=== PATIENT | female | born 1970 | race Caucasian/White ===

== ENCOUNTER 2017-01-01 19:08 | Emergency (ER) | payer BC ==
[~2017-01-01] VITALS: Ht 165.1 cm; Wt 77.0 kg
[2017-01-01 19:18] VITALS: BP 168/112; PULSE 108; RESP 22; TEMP 97.9; O2SAT 99
[2017-01-01] MEDS ORDERED: LISI40TA PO (19:22)
[2017-01-01] MEDS ORDERED: SODIUM CHLOR 0.9% 1000 ML INJ 1,000 ML IV SCH (19:27)
[2017-01-01] MEDS ORDERED: EPINEPHrine HCL (1:1000) 1 MG/ML VIAL IM ONE (19:30)
[2017-01-01] MEDS ORDERED: ONDANSETRON HCL 4 MG/2 ML VIAL IVP ONE (19:30)
[2017-01-01] MEDS ORDERED: diphenhydrAMINE HCL 50 MG/ML VIAL IVP ONE (19:30)
[2017-01-01] MEDS ORDERED: SODIUM CHLORIDE 0.9% FLUSH 10 ML FLUSH IV FLUSH PRN ×2 (19:30)
[2017-01-01] MEDS ORDERED: MORPHINE SULFATE 4 MG/ML INJ IV PUSH ONE (19:30)
[2017-01-01] MEDS ORDERED: methylPREDNISolone SOD SUCC 125 MG/2 ML VIAL IV PUSH ONE (19:30)
[2017-01-01 19:34] VITALS: O2SAT 99
--- NOTE | 2017-01-01 19:35 | PD ---
HPI Chief Complaint: Allergic/Adverse Reaction Time Seen by Provider: 19:11 Travel History International Travel<30 days: No Contact w/Intl Traveler<30days: No Traveled to known affect area: No History of Present Illness HPI The patient is a 43-year-old female that was at a family outing at approximately 6 PM today when she began to get lip swelling and vomiting. She states she is allergic to avocados and usually vomits with she eats avocados. She denies any shortness of breath. She denies vomiting any blood. She denies any fever or diarrhea. She is not sure if she ate avocados or not. She denies any abdominal surgeries and still has her appendix and gallbladder. PFSH Past Medical History ?: Not LMP: Now Social History Tobacco Use: No Allergies-Medications (Allergen,Severity, Reaction): Coded Allergies: avocado (Verified Allergy, Unknown, 01/01/17) Reported Meds & Prescriptions Reported Meds & Active Scripts Active Cipro (Ciprofloxacin HCl) 500 Mg Tab 500 Mg PO BID 10 Days Flagyl (Metronidazole) 500 Mg Tab 500 Mg PO TID 10 Days Prochlorperazine Maleate 10 Mg Tab 10 Mg PO Q6H PRN Prednisone 50 Mg Tab 50 Mg PO BID Reported Lisinopril 40 Mg Tab 40 Mg PO DAILY Review of Systems Except as stated in HPI: all other systems reviewed are Neg Physical Exam Narrative GENERAL: The patient is alert, oriented 3 and moderate apparent distress with her bilateral lower quadrant pain and nausea. Her vital signs show blood pressure 168/112 and heart rate of 108 and respirations 22 but otherwise normal. SKIN: Focused skin assessment warm/dry. HEAD: Atraumatic. Normocephalic. EYES: Pupils equal and round. No scleral icterus. No injection or drainage. ENT: No nasal bleeding or discharge. Mucous membranes pink and moist. NECK: Trachea midline. No JVD. CARDIOVASCULAR: Regular rate and rhythm. No murmur appreciated. RESPIRATORY: No accessory muscle use. Clear to auscultation. Breath sounds equal bilaterally. GASTROINTESTINAL: Abdomen soft, with tenderness to direct palpation in the bilateral lower quadrants., nondistended. Hepatic and splenic margins not palpable. No guarding or rebound is present. MUSCULOSKELETAL: No obvious deformities. No clubbing. No cyanosis. No edema. NEUROLOGICAL: Awake and alert. No obvious cranial nerve deficits. Motor grossly within normal limits. Normal speech. PSYCHIATRIC: Appropriate mood and affect; insight and judgment normal. Data Data Last Documented VS Vital Signs Date Time Temp Pulse Resp B/P (MAP) Pulse Ox O2 Delivery O2 Flow Rate FiO2 01/01/17 20:35 85 16 126/81 (96) 95 Room Air 01/01/17:18 97.9 Orders Orders Beta Hcg (Quant/Titer) (01/01/17:) Complete Blood Count With Diff (01/01/17) Comprehensive Metabolic Panel (01/01/17) Lipase (01/01/17:) Urinalysis - C+S If Indicated (01/01/17) Ct Abd/Pel W Iv Contrast(Rout) (01/01/17:) Iv Access Insert/Monitor (01/01/17) Ecg Monitoring (01/01/17) Oximetry (01/01/17:) Morphine Inj (Morphine Inj) (01/01/17:30) Ondansetron Inj (Zofran Inj) (01/01/17 19:30) Sodium Chlor 0.9% 1000 Ml Inj (Ns 1000 M (01/01/17 19:27) Sodium Chloride 0.9% Flush (Ns Flush) (01/01/17:30) Diphenhydramine Inj (Benadryl Inj) (01/01/17:30) Methylprednisolone So Succ Inj (Solumedr (01/01/17 19:30) Sodium Chloride 0.9% Flush (Ns Flush) (01/01/17:30) Epinephrine (1:1000) Inj (Adrenalin (1:1 (01/01/17 19:30) Urine Culture (01/01/17:30) Iohexol 350 Inj (Omnipaque 350 Inj) (01/01/17 20:15) Metronidazole (Flagyl) (01/01/17 21:15) Ciprofloxacin (Cipro) (01/01/17 21:15) Labs Laboratory Tests Test 01/01/17:30 White Blood Count 9.3 TH/MM3 Red Blood Count 5.17 MIL/MM3 Hemoglobin 14.5 GM/DL Hematocrit 44.3 % Mean Corpuscular Volume 85.6 FL Mean Corpuscular Hemoglobin 28.1 PG Mean Corpuscular Hemoglobin Concent 32.8 % Red Cell Distribution Width 13.0 % Platelet Count 616 TH/MM3 Mean Platelet Volume 7.8 FL Neutrophils (%) (Auto) 46.2 % Lymphocytes (%) (Auto) 40.7 % Monocytes (%) (Auto) 7.0 % Eosinophils (%) (Auto) 1.4 % Basophils (%) (Auto) 4.7 % Neutrophils # (Auto) 4.4 TH/MM3 Lymphocytes # (Auto) 3.8 TH/MM3 Monocytes # (Auto) 0.6 TH/MM3 Eosinophils # (Auto) 0.1 TH/MM3 Basophils # (Auto) 0.4 TH/MM3 CBC Comment DIFF FINAL Differential Comment Urine Color YELLOW Urine Turbidity CLOUDY Urine pH 5.5 Urine Specific Jackson 1.021 Urine Protein 100 mg/dL Urine Glucose (UA) NEG mg/dL Urine Ketones 15 mg/dL Urine Occult Blood LARGE Urine Nitrite NEG Urine Bilirubin NEG Urine Leukocyte Esterase TRACE Urine RBC 4-9 /hpf Urine WBC 9-14 /hpf Urine Squamous Epithelial Cells > 8 /hpf Urine Bacteria FEW /hpf Microscopic Urinalysis Comment CULTURE INDICATED Blood Urea Nitrogen 18 MG/DL Creatinine 0.99 MG/DL Random Glucose 106 MG/DL Total Protein 9.0 GM/DL Albumin 4.3 GM/DL Calcium Level 9.1 MG/DL Alkaline Phosphatase 93 U/L Aspartate Amino Transf (AST/SGOT) 39 U/L Alanine Aminotransferase (ALT/SGPT) 51 U/L Total Bilirubin 0.4 MG/DL Sodium Level 139 MEQ/L Potassium Level 3.4 MEQ/L Chloride Level 104 MEQ/L Carbon Dioxide Level 25.2 MEQ/L Anion Gap 10 MEQ/L Estimat Glomerular Filtration Rate 61 ML/MIN Lipase 260 U/L Human Chorionic Gonadotropin, Quant LESS THAN 1 MIU/ML MDM Medical Decision Making Medical Screen Exam Complete: Yes Emergency Medical Condition: Yes Medical Record Reviewed: Yes Interpretation(s) The CBC is normal except for a platelet count of 616,000. The complete metabolic profile shows potassium of 3.4, GFR of 61, AST of 39 with total protein of 9.0 but is otherwise normal. The lipase is normal and the beta-hCG is less than 1. The urine shows cloudy turbidity, 100 protein, large occult blood with trace leukocyte esterase and 4-9 red cells and 9-14 white cells and few bacteria in the urine and culture is indicated. The CT abdomen/pelvis with IV contrast shows mild to moderate left-sided colitis, most likely an infectious or inflammatory. No abscesses, perforation or obstruction is noted. There is a benign-appearing cystic lesion of the right for low back. The patient has no history of pain in this area. Differential Diagnosis Allergic reaction, gastritis, gastroenteritis, small bowel obstruction-highly unlikely, appendicitis, urinary tract infection, colitis, Narrative Course The patient has a urinary tract infection and colitis as well as an allergic reaction. She will be given Cipro 500 mg twice daily for 10 days and Flagyl 500 mg 3 times daily for 10 days. She needs to follow-up with a primary care physician. She should drink clear liquids. She is also given Compazine and a tapered course of prednisone for the allergic reaction. It is now 0903 in the swelling in her lips is going down and the swelling in her face is going down. Diagnosis Primary Impression: Allergic reaction Additional Impressions: Colitis Urinary tract infection Additional Instructions: For the first 24 hours U should limit your food intake to just clear liquids like Gatorade and water and crackers. Gradually reintroduce your diet and adding fatty foods and last period if worse, follow-up with a primary care physician or return to emergency department. The prednisone is for the allergic reaction and this is one tablet twice daily for 4 days followed by one tablet once daily for 4 days. The nausea medication is one tablet every 8 hours as needed. Med/Other Pt SpecificInfo: Prescription(s) given Scripts Ciprofloxacin (Cipro) 500 Mg Tab 500 MG PO BID for Infection for 10 Days, #20 TAB 0 Refills Prov: Abelino Harden MD 01/01/17 Metronidazole (Flagyl) 500 Mg Tab 500 MG PO TID for Infection for 10 Days, TAB 0 Refills Prov: Abelino Harden MD 01/01/17 Prochlorperazine Maleate (Prochlorperazine Maleate) 10 Mg Tab 10 MG PO Q6H Y for NAUSEA OR VOMITING, #28 TAB 0 Refills Prov: Abelino Harden MD 01/01/17 Prednisone (Prednisone) 50 Mg Tab 50 MG PO BID for X 4 days than daily X 4 days, #12 TAB 0 Refills Prov: Abelino Harden MD 01/01/17 Disposition: 01 DISCHARGE HOME Condition: Stable Abelino Harden MD Jan 01, 2017 19:35
[2017-01-01 19:38] LABS: AUTOMATED NEUTROPHIL # 4.4 TH/MM3 (1.8-7.7); BASOPHIL # 0.4 TH/MM3 (0-0.2); BASOPHIL % 4.7 % (0.0-2.0); EOSINOPHIL # 0.1 TH/MM3 (0-0.4); EOSINOPHIL % 1.4 % (0.0-4.0); HEMATOCRIT 44.3 % (35.0-46.0); HEMO FLAGS DIFF FINAL; LYMPH % 40.7 % (9.0-44.0); LYMPHOCYTE # 3.8 TH/MM3 (1.0-4.8); MEAN CELL VOLUME 85.6 FL (80.0-100.0); MEAN CORPUSCULAR HEMOGLOBIN 28.1 PG (27.0-34.0); MEAN CORPUSCULAR HGB CONC 32.8 % (32.0-36.0); NEUT % 46.2 % (16.0-70.0); PLATELET COUNT 616 TH/MM3 (150-450); RED BLOOD COUNT 5.17 MIL/MM3 (4.00-5.30); WHITE BLOOD COUNT 9.3 TH/MM3 (4.0-11.0)
[2017-01-01 19:46] LABS: BLOOD, URINE LARGE (NEG); GLUCOSE,URINE NEG (NEG); KETONE, URINE 15 mg/dL (NEG); NITRITE,URINE NEG (NEG); PH, URINE 5.5 (5.0-8.5)
[2017-01-01 19:49] LABS: CHLORIDE 104 MEQ/L (98-107); POTASSIUM 3.4 MEQ/L (3.5-5.1); SODIUM (NA) 139 MEQ/L (136-145)
[2017-01-01 19:52] LABS: ANION GAP 10 MEQ/L (5-15); BICARBONATE 25.2 MEQ/L (21.0-32.0)
[2017-01-01 19:53] LABS: BLOOD UREA NITROGEN 18 MG/DL (7-18)
[2017-01-01 19:55] LABS: ALT (GPT) 51 U/L (10-53); AST (GOT) 39 U/L (15-37); GLOMERULAR FILTRATION RATE 61 ML/MIN (>89)
[2017-01-01 19:56] LABS: BACTERIA, URINE FEW /hpf; COMMENT (UR) CULTURE INDICATED; CULTURE IF INDICATED CULTURE INDICATED; SQUAMOUS EPITHELIAL CELL URINE > 8 /hpf (0-5); URINE COLOR YELLOW (YELLW/STRAW)
[2017-01-01 19:57] LABS: TOTAL BILIRUBIN ADULT 0.4 MG/DL (0.2-1.0)
[2017-01-01 19:58] LABS: ALKALINE PHOSPHATASE 93 U/L (45-117)
[2017-01-01 20:01] LABS: BETA HCG QUANT LESS THAN 1 MIU/ML (0-5)
[2017-01-01] MEDS ORDERED: IOHEXOL 350 MG/ML 10 ML VIAL (for RAD DIAG) IVCONTRAST ONE (20:15)
[2017-01-01 20:35] VITALS: BP 126/81; PULSE 85; RESP 16; O2SAT 95
[2017-01-01] MEDS ORDERED: PRED50 PO (20:44)
--- NOTE | 2017-01-01 20:44 | RADRPT ---
EXAM DATE/TIME: 01/01/2017 20:10 [facility] COMPARISON: No previous studies available for comparison. INDICATIONS : Vomiting status post possible allergen ingestion. IV CONTRAST: 96 cc Omnipaque 350 (iohexol) IV ORAL CONTRAST: No oral contrast ingested. RADIATION DOSE: 9.99 CTDIvol (mGy) MEDICAL HISTORY : None SURGICAL HISTORY : section. ENCOUNTER: Initial ACUITY: 1 day PAIN SCALE: 0/10 LOCATION: abdomen TECHNIQUE: Volumetric scanning of the abdomen and pelvis was performed. Using automated exposure control and ad justment of the mA and/or kV according to patient size, radiation dose was kept as low as reasonably achievable to obtain optimal diagnostic quality images. DICOM format image data is available electro nically for review and comparison. FINDINGS: LOWER LUNGS: The visualized lower lungs are clear. LIVER: Homogeneous density without lesion. There is no dilation of the biliary tree. No calcified gallston es. SPLEEN: Normal size without lesion. PANCREAS: Within normal limits. KIDNEYS: Normal in size and shape. There is no mass, stone or hydronephrosis. ADRENAL GLANDS: Within normal limits. VASCULAR: There is no aortic aneurysm. BOWEL/MESENTERY: There is mild to moderate wall thickening and induration of the left side of the colon, beginning at the level of the splenic flexure. The cecum and right side of the colon appear relatively normal. A s mall hiatal hernia is noted but the stomach otherwise appears normal. No small bowel abnormality demo nstrated. ABDOMINAL WALL: Within normal limits. RETROPERITONEUM: There is no lymphadenopathy. BLADDER: No wall thickening or mass. REPRODUCTIVE: Within normal limits. INGUINAL: There is no lymphadenopathy or hernia. MUSCULOSKELETAL: No acute bony abnormality demonstrated. There is a subcortical lucency in the inferior aspect of the right femoral neck measuring approximately 2.6 cm in size. There is a well-defined sclerotic margin. No periosteal reaction. CONCLUSION: 1. Mild to moderate left-sided colitis, most likely infectious or inflammatory. No abscess, perforati on or obstruction. 2. No other acute abnormalities are demonstrated. There is a small hiatal hernia. 3. Benign appearing cystic lesion of the right femoral neck. If there is a history of pain, further e valuation with right hip MRI is suggested but otherwise this doesn't need any imaging followup. Cameron Anderson MD on January 01, 2017 at 20:37 Board Certified Radiologist. This report was verified electronically.
[2017-01-01] MEDS ORDERED: PROC10TA PO (20:45)
[2017-01-01] MEDS ORDERED: METR-1 PO (21:05)
[2017-01-01] MEDS ORDERED: CIPR-9 PO (21:05)
[2017-01-01] MEDS ORDERED: metroNIDAZOLE 500 MG TAB PO ONE (21:15)
[2017-01-01] MEDS ORDERED: CIPROFLOXACIN 500 MG TAB PO ONE (21:15)
[2017-01-01 21:24] VITALS: BP 131/82
== END 2017-01-01 21:35 | disposition home or self-care (01) ==
LOC: EDBD 19:08 → PHED 19:08
DX: T78.40XA Allergy, unspecified, initial encounter (principal); K51.50 Left sided colitis without complications; N39.0 Urinary tract infection, site not specified; R82.99 Other abnormal findings in urine; X58.XXXA Exposure to other specified factors, initial encounter; Z79.899 Other long term (current) drug therapy
CPT/HCPCS: 74177; 80053; 81001; 83690; 84702; 85025; 87086; 96361; 96372; 96374; 96375; 99285; J0171; J1200; J2270; J2405; J2930; J7030; Q9967